=== PATIENT | male | born 1985 | race Caucasian/White ===

== ENCOUNTER 2018-09-08 14:00 | Emergency (ER) | payer OTHER ==
[~2018-09-08] VITALS: Ht 180.3 cm; Wt 72.6 kg
--- OUTSIDE RECORDS SUMMARY | 2018-09-08 14:06 | XMS REPORT ---
Author Author DELICIA RYAN Organization [facility] Address [address] [place] [address] Care Team Providers Care Engine Generator Assembler Name Role Phone DELICIA RYAN Unavailable PROBLEMS Type Condition ICD9-CM Code [id number] Code Onset Dates Condition Status SNOMED Code Problem Major depressive disorder, recurrent episode, moderate F33.1 Active [id number] ALLERGIES No Known Allergies ENCOUNTERS Encounter Location Date Diagnosis [facility] [id number] [place] [phone] Feb, Major depressive disorder, recurrent episode, moderate F33.1 [facility] [address] [place] [address] 08478[address]168 Dec, Major depressive disorder, recurrent episode, moderate F33.1 [facility] [address] [place] [address] Nov, Major depressive disorder, recurrent episode, moderate F33.1 [facility] [address] [place] [address] 25948- [address]862 Nov, Major depressive disorder, recurrent episode, moderate F33.1 IMMUNIZATIONS No Known Immunizations SOCIAL HISTORY Never Assessed REASON FOR VISIT intake Adrián PLAN OF CARE Activity Details Follow Up 6 Weeks Reason: VITAL SIGNS Height 72 in 2018-01-10 Weight 160.9 lbs 2018-01-10 Heart Rate 68 bpm 2018-01-10 Respiratory Rate 22 2018-01-10 BMI 21.82 kg/m2 2018-01-10 Blood pressure systolic 124 mmHg 2018-01-10 Blood pressure diastolic 72 mmHg 2018-01-10 MEDICATIONS Medication Instructions Dosage Frequency Start Date End Date Duration Status Celexa 20 MG Orally Once a day 0.5 tablet every day for one week then take full tablet daily 24h Dec, 30 day(s) Active RESULTS No Results PROCEDURES No Known procedures INSTRUCTIONS MEDICATIONS ADMINISTERED No Known Medications MEDICAL (GENERAL) HISTORY Type Description Date Surgical History eye surgery when he was 1986 Hospitalization History surgery 1987
--- OUTSIDE RECORDS SUMMARY | 2018-09-08 14:06 | XMS REPORT ---
Author Author AMANDA CLANCY Organization [facility] Address [address] [place] [address] Care Team Providers Care Apprentice Painter Hand Name Role Phone AMANDA CLANCY Unavailable PROBLEMS Type Condition ICD9-CM Code [id number] Code Onset Dates Condition Status SNOMED Code Problem Major depressive disorder, recurrent episode, moderate F33.1 Active [id number] ALLERGIES No Information ENCOUNTERS Encounter Location Date Diagnosis [facility] [address] [place] [phone]- [phone] Feb, Major depressive disorder, recurrent episode, moderate F33.1 [facility] [address] [address] Dec, Major depressive disorder, recurrent episode, moderate F33.1 [facility] [id number] [address] Nov, Major depressive disorder, recurrent episode, moderate F33.1 [facility] [address] [address] Nov, Major depressive disorder, recurrent episode, moderate F33.1 IMMUNIZATIONS No Known Immunizations SOCIAL HISTORY Never Assessed REASON FOR VISIT f/u, Depression. PLAN OF CARE Activity Details Follow Up Next available Reason:depression VITAL SIGNS MEDICATIONS No Known Medications RESULTS No Results PROCEDURES Procedure Date Ordered Result Body Site Psychotherapy, patient &/family, 30 minutes, established patient December 16, 2017 INSTRUCTIONS MEDICATIONS ADMINISTERED No Known Medications MEDICAL (GENERAL) HISTORY Type Description Date Surgical History eye surgery when he was 3 1986 Hospitalization History surgery 1986
--- OUTSIDE RECORDS SUMMARY | 2018-09-08 14:06 | XMS REPORT ---
Author Author DELICIA RYAN Organization [facility] Address [address] [place] [address] Care Team Providers Care Commercial Photographer Name Role Phone DELICIA RYAN Unavailable PROBLEMS Type Condition ICD9-CM Code [id number] Code Onset Dates Condition Status SNOMED Code Problem Major depressive disorder, recurrent episode, moderate F33.1 Active [id number] ALLERGIES No Known Allergies ENCOUNTERS Encounter Location Date Diagnosis [facility] [id number] [place] [address] 39193- [phone] Aug, [place] [id number] [place] [address] 99064- 5932 Apr, Major depressive disorder, recurrent episode, moderate F33.1 [facility] [id number] [place] [address] 24370- 0691 Apr, [place] [id number] [place] [address] 21871- 9551 Feb, Major depressive disorder, recurrent episode, moderate F33.1 [place] [id number] [place] [address] 50543- 68[address] Dec, Major depressive disorder, recurrent episode, moderate F33.1 [facility] [id number] [place] [address] 04458- 4592 Nov, Major depressive disorder, recurrent episode, moderate F33.1 [place] [id number] [place] [address] 07680- 2749 Nov, Major depressive disorder, recurrent episode, moderate F33.1 IMMUNIZATIONS No Known Immunizations SOCIAL HISTORY Never Assessed REASON FOR VISIT f/u JjournotRN PLAN OF CARE Activity Details Follow Up 4 Months Reason: VITAL SIGNS Height 72 in 2018-05-05 Weight 163.0 lbs 2018-05-05 Heart Rate 76 bpm 2018-05-05 Respiratory Rate 20 2018-05-05 BMI 22.10 kg/m2 2018-05-05 Blood pressure systolic 126 mmHg 2018-05-05 Blood pressure diastolic 84 mmHg 2018-05-05 MEDICATIONS Medication Instructions Dosage Frequency Start Date End Date Duration Status Celexa 20 MG Orally Once a day 1.5 tablet 24h Apr, 90 days Active RESULTS No Results PROCEDURES No Known procedures INSTRUCTIONS MEDICATIONS ADMINISTERED No Known Medications MEDICAL (GENERAL) HISTORY Type Description Date Surgical History eye surgery when he was 3 1986 Hospitalization History surgery 1986
--- OUTSIDE RECORDS SUMMARY | 2018-09-08 14:06 | XMS REPORT ---
Author Author DELICIA RYAN Organization [facility] Address [address] [place] [address] Care Team Providers Care Informatics Manager Name Role Phone DELICIA RYAN Unavailable PROBLEMS Type Condition ICD9-CM Code WHQ74-[id number] Code Onset Dates Condition Status SNOMED Code Problem Major depressive disorder, recurrent episode, moderate F33.1 Active [id number] ALLERGIES No Information ENCOUNTERS Encounter Location Date Diagnosis [place] [id number] [place] [phone] Aug, [place] [id number] [place] [address] 66412- [address]387 Apr, Major depressive disorder, recurrent episode, moderate F33.1 [facility] [id number] [place] [address] 08498- 1124 Apr, [place] [id number] [place] [address] 37727- 5535 Feb, Major depressive disorder, recurrent episode, moderate F33.1 [place] [id number] [place] [address] 28983- 5748 Dec, Major depressive disorder, recurrent episode, moderate F33.1 [facility] [id number] [place] [address] 11034- 4102 Nov, Major depressive disorder, recurrent episode, moderate F33.1 [place] [id number] [place] [address] 89512- 7970 Nov, Major depressive disorder, recurrent episode, moderate F33.1 IMMUNIZATIONS No Known Immunizations SOCIAL HISTORY Never Assessed REASON FOR VISIT refill request PLAN OF CARE VITAL SIGNS MEDICATIONS Unknown Medications RESULTS No Results PROCEDURES No Known procedures INSTRUCTIONS MEDICATIONS ADMINISTERED No Known Medications MEDICAL (GENERAL) HISTORY Type Description Date Surgical History eye surgery when he was 1986 Hospitalization History surgery 1987
--- OUTSIDE RECORDS SUMMARY | 2018-09-08 14:06 | XMS REPORT ---
Author Author AMANDA CLANCY Organization [facility] Address [address] [place] [address] Care Team Providers Care Scout Name Role Phone AMANDA CLANCY Unavailable PROBLEMS Type Condition ICD9-CM Code [id number] Code Onset Dates Condition Status SNOMED Code Problem Major depressive disorder, recurrent episode, moderate F33.1 Active [id number] ALLERGIES No Information ENCOUNTERS Encounter Location Date Diagnosis [facility] [address] [place] [address] [phone]- [address] Feb, Major depressive disorder, recurrent episode, moderate F33.1 [facility] [address] [address] Dec, Major depressive disorder, recurrent episode, moderate F33.1 [facility] [address] [address] Nov, Major depressive disorder, recurrent episode, moderate F33.1 [facility] [address] [address] Nov, Major depressive disorder, recurrent episode, moderate F33.1 IMMUNIZATIONS No Known Immunizations SOCIAL HISTORY Never Assessed REASON FOR VISIT BH intake, Depression. PLAN OF CARE Activity Details Follow Up next available Reason:depresson VITAL SIGNS MEDICATIONS No Known Medications RESULTS No Results PROCEDURES Procedure Date Ordered Result Body Site Psych diagnostic evaluation, new patient December 08, 2017 INSTRUCTIONS MEDICATIONS ADMINISTERED No Known Medications MEDICAL (GENERAL) HISTORY Type Description Date Surgical History eye surgery when he was 3 1986 Hospitalization History surgery 1986
--- OUTSIDE RECORDS SUMMARY | 2018-09-08 14:06 | XMS REPORT ---
Author Author DELICIA RYAN Organization [facility] Address [address] [place] [address] Care Team Providers Care Manager Financial Systems Name Role Phone DELICIA RYAN Unavailable PROBLEMS Type Condition ICD9-CM Code [id number] Code Onset Dates Condition Status SNOMED Code Problem Major depressive disorder, recurrent episode, moderate F33.1 Active [id number] ALLERGIES No Known Allergies ENCOUNTERS Encounter Location Date Diagnosis [facility] [id number] [place] [address] 57285- [phone] Aug, [place] [id number] [place] [address] 25444- 9724 Apr, Major depressive disorder, recurrent episode, moderate F33.1 [facility] [id number] [place] [address] 29247- 3694 Apr, [place] [id number] [place] [address] 47051- 7802 Feb, Major depressive disorder, recurrent episode, moderate F33.1 [place] [id number] [place] [address] 47838- 0599 Dec, Major depressive disorder, recurrent episode, moderate F33.1 [facility] [id number] [place] [address] 96245- 1044 Nov, Major depressive disorder, recurrent episode, moderate F33.1 [place] [id number] [place] [address] 57657- 5986 Nov, Major depressive disorder, recurrent episode, moderate F33.1 IMMUNIZATIONS No Known Immunizations SOCIAL HISTORY Never Assessed REASON FOR VISIT BH f/u PLAN OF CARE Activity Details Follow Up 4 Weeks, prn Reason: VITAL SIGNS Height 72 in 2018-02-21 Weight 158.0 lbs 2018-02-21 Heart Rate 92 bpm 2018-02-21 Respiratory Rate 20 2018-02-21 BMI 21.43 kg/m2 2018-02-21 Blood pressure systolic 130 mmHg 2018-02-21 Blood pressure diastolic 68 mmHg 2018-02-21 MEDICATIONS Medication Instructions Dosage Frequency Start Date End Date Duration Status Celexa 20 MG Orally Once a day 1.5 tablest 24h Dec, 30 days Active RESULTS No Results PROCEDURES No Known procedures INSTRUCTIONS MEDICATIONS ADMINISTERED No Known Medications MEDICAL (GENERAL) HISTORY Type Description Date Surgical History eye surgery when he was 3 1986 Hospitalization History surgery 1986
--- NOTE | 2018-09-08 14:22 | ED General ---
General Stated Complaint: DIAPHORETIC Source of Information: Patient Exam Limitations: No Limitations History of Present Illness Date Seen by Provider: Sep 08, 2018 Time Seen by Provider: 14:00 Initial Comments Here with report of overall not feeling well. States that he has not been feeling well for the last 5 days. He has had some nausea and diarrhea. Denies fevers, cough or breathing problems. Today he got up after lying down watching TV and became lightheaded, diaphoretic and pale. He sat down on the floor but did not get the feeling better and EMS was called. On their arrival he was still fairly pale and diaphoretic. IV was initiated and fluid bolus started. This did help. He was orthostatic positive per EMS with greater than 20 drop in systolic from lying to sitting. Significant other does report that the patient works quite a bit although he has been off for several days for his days off. He does work at the [employer]. Timing/Duration: 4-5 Days, Getting Worse Severity: Moderate Modifying Factors: improves with Rest Associated Systoms: No Chest Pain, No Cough; Diaphoresis, Loss of Appetite, Nausea/Vomiting; No Shortness of Air; Weakness Allergies and Home Medications Allergies Coded Allergies: No Known Drug Allergies (Unverified , 09/08/18) Patient Home Medication List Home Medication List Reviewed: Yes Review of Systems Review of Systems Constitutional: see HPI, chills, diaphoresis; No fever EENTM: no symptoms reported Respiratory: no symptoms reported Cardiovascular: see HPI; No palpitations; syncope Gastrointestinal: No abdominal pain; diarrhea, nausea; No vomiting Genitourinary: no symptoms reported Musculoskeletal: no symptoms reported Skin: no symptoms reported Psychiatric/Neurological: Denies Headache; Weakness Hematologic/Lymphatic: No Symptoms Reported All Other Systems Reviewed Negative Unless Noted: Yes Past Jduequi-Sggdrz-Ntliiq Hx Past Med/Social Hx: Reviewed Nursing Past Med/Soc Hx Patient Social History Alcohol Use: Denies Use Recreational Drug Use: No Smoking Status: Never a Smoker Past Medical History Surgeries: No Respiratory: No Cardiac: No Neurological: No Genitourinary: No Gastrointestinal: No Musculoskeletal: No HEENT: No Cancer: No Psychosocial: No Family Medical History Reviewed Nursing Family Hx Physical Exam Vital Signs Vital Signs - First Documented 09/08/18 14:00 Temp 97.9 Pulse 85 Resp 18 B/P (MAP) 111/66 (81) Pulse Ox 97 O2 Delivery Room Air Capillary Refill : Height, Weight, BMI Height: '" Weight: lbs. oz. kg; BMI Method: General Appearance: No Apparent Distress, WD/WN HEENT: PERRL/EOMI, Pharynx Normal Neck: Non Tender, Supple Respiratory: Lungs Clear, Normal Breath Sounds Cardiovascular: Regular Rate, Rhythm, No Murmur Gastrointestinal: Non Tender, Soft Back: Normal Inspection, No CVA Tenderness, No Vertebral Tenderness Extremity: Normal Range of Motion, Non Tender Neurologic/Psychiatric: Alert, Oriented x3 Skin: Normal Color, Warm/Dry Progress/Results/Core Measures Suspected Sepsis SIRS Temperature: Pulse: Respiratory Rate: Laboratory Tests 09/08/18 14:25: White Blood Count 8.7 Blood Pressure / Mean: Laboratory Tests 09/08/18 14:25: Creatinine 0.83, Platelet Count 269, Total Bilirubin 0.4 Results/Orders Lab Results Laboratory Tests Test 09/08/18 14:25 09/08/18 14:49 Range/Units White Blood Count 8.7 4.3-11.0 10^3/uL Red Blood Count 5.01 4.35-5.85 10^6/uL Hemoglobin 15.1 13.3-17.7 G/DL Hematocrit 44 40-54 % Mean Corpuscular Volume 87 80-99 FL Mean Corpuscular Hemoglobin 30 25-34 PG Mean Corpuscular Hemoglobin Concent 35 32-36 G/DL Red Cell Distribution Width 13.0 10.0-14.5 % Platelet Count 269 130-400 10^3/uL Mean Platelet Volume 9.5 7.4-10.4 FL Neutrophils (%) (Auto) 56 42-75 % Lymphocytes (%) (Auto) 32 12-44 % Monocytes (%) (Auto) 7 0-12 % Eosinophils (%) (Auto) 5 0-10 % Basophils (%) (Auto) 1 0-10 % Neutrophils # (Auto) 4.8 1.8-7.8 X 10^3 Lymphocytes # (Auto) 2.7 1.0-4.0 X 10^3 Monocytes # (Auto) 0.6 0.0-1.0 X 10^3 Eosinophils # (Auto) 0.4 H 0.0-0.3 10^3/uL Basophils # (Auto) 0.0 0.0-0.1 10^3/uL Sodium Level 138 135-145 MMOL/L Potassium Level 3.7 3.6-5.0 MMOL/L Chloride Level 105 98-107 MMOL/L Carbon Dioxide Level 23 21-32 MMOL/L Anion Gap 10 5-14 MMOL/L Blood Urea Nitrogen 12 7-18 MG/DL Creatinine 0.83 0.60-1.30 MG/DL Estimat Glomerular Filtration Rate > 60 BUN/Creatinine Ratio 14 Glucose Level 114 H 70-105 MG/DL Calcium Level 8.8 8.5-10.1 MG/DL Corrected Calcium 8.5 8.5-10.1 MG/DL Magnesium Level 2.1 1.8-2.4 MG/DL Total Bilirubin 0.4 0.1-1.0 MG/DL Aspartate Amino Transf (AST/SGOT) 18 5-34 U/L Alanine Aminotransferase (ALT/SGPT) 20 0-55 U/L Alkaline Phosphatase 76 40-136 U/L C-Reactive Protein High Sensitivity 0.05 0.00-0.50 MG/DL Total Protein 7.0 6.4-8.2 GM/DL Albumin 4.4 3.2-4.5 GM/DL Urine Color YELLOW Urine Clarity CLEAR Urine pH 8 5-9 Urine Specific [place] 1.015 L 1.016-1.022 Urine Protein 1+ H NEGATIVE Urine Glucose (UA) NEGATIVE NEGATIVE Urine Ketones NEGATIVE NEGATIVE Urine Nitrite NEGATIVE NEGATIVE Urine Bilirubin NEGATIVE NEGATIVE Urine Urobilinogen NORMAL NORMAL MG/DL Urine Leukocyte Esterase 1+ H NEGATIVE Urine RBC (Auto) NEGATIVE NEGATIVE Urine RBC NONE /HPF Urine WBC 2-5 /HPF Urine Squamous Epithelial Cells NONE /HPF Urine Crystals NONE /LPF Urine Bacteria NEGATIVE /HPF Urine Casts NONE /LPF Urine Mucus NEGATIVE /LPF Urine Culture Indicated NO My Orders Orders - LESLIE LIMA MD Cbc With Automated Diff (09/08/18 14:09) Comprehensive Metabolic Panel (09/08/18 14:09) Hs C Reactive Protein (09/08/18 14:09) Magnesium (09/08/18 14:09) Ua Culture If Indicated (09/08/18 14:09) Vital Signs/I&O 09/08/18 14:00 Temp 97.9 Pulse 85 Resp 18 B/P (MAP) 111/66 (81) Pulse Ox 97 O2 Delivery Room Air Capillary Refill : Progress Note : Progress Note Seen and evaluated. IV established by EMS. Normal saline 1 L bolus running now. We will consider another needed. Labs and UA ordered. Monitor patient. 1545: Overall feeling much better. Tolerating by mouth fluids without difficulty. Discharged home with return precautions. Patient verbalize understanding instructions and agreement with plan. Departure Impression Primary Impression: Near syncope Additional Impressions: Nausea Acute diarrhea Disposition: HOME, SELF-CARE Condition: Improved Departure-Patient Inst. Decision time for Depature: 15:51 Patient Instructions: Acute Abdomen (Belly Pain), Adult (DC), Nausea and Vomiting, Adult (DC), Syncope (Fainting) (DC) Add. Discharge Instructions: Clear liquid or light diet for 24 hours and then advance as tolerated. Drink plenty of fluids. Follow up with your Dr. in a few days for recheck. Return for worse pain, fever, vomiting, weakness, breathing problems or other concerns as needed. Work/School Note: [employer] LESLIE LIMA MD Sep 08, 2018 14:22
[2018-09-08 14:34] LABS: BASOPHILS % (AUTO) 1 % (0-10); EOSINOPHILS # (AUTO) 0.4 10^3/uL (0.0-0.3); EOSINOPHILS % (AUTO) 5 % (0-10); HEMATOCRIT 44 % (40-54); HEMOGLOBIN 15.1 G/DL (13.3-17.7); LYMPHOCYTES # (AUTO) 2.7 X 10^3 (1.0-4.0); LYMPHOCYTES % (AUTO) 32 % (12-44); MEAN CORPUSCULAR HEMOGLOBIN 30 PG (25-34); MEAN CORPUSCULAR HGB CONC 35 G/DL (32-36); MEAN CORPUSCULAR VOLUME 87 FL (80-99); MEAN PLATELET VOLUME 9.5 FL (7.4-10.4); MONOCYTES # (AUTO) 0.6 X 10^3 (0.0-1.0); MONOCYTES % (AUTO) 7 % (0-12); NEUTROPHILS # (AUTO) 4.8 X 10^3 (1.8-7.8); NEUTROPHILS % (AUTO) 56 % (42-75); PLATELET COUNT 269 10^3/uL (130-400); RED BLOOD COUNT 5.01 10^6/uL (4.35-5.85); WHITE BLOOD COUNT 8.7 10^3/uL (4.3-11.0)
[2018-09-08 14:53] LABS: ALANINE AMINOTRANSFERASE 20 U/L (0-55); ALBUMIN 4.4 GM/DL (3.2-4.5); ALKALINE PHOSPHATASE 76 U/L (40-136); BILIRUBIN,TOTAL 0.4 MG/DL (0.1-1.0); BUN/CREATININE RATIO 14; CALCIUM 8.8 MG/DL (8.5-10.1); CARBON DIOXIDE 23 MMOL/L (21-32); CHLORIDE 105 MMOL/L (98-107); CREATININE SERUM 0.83 MG/DL (0.60-1.30); GFR ESTIMATED > 60; GLUCOSE 114 MG/DL (70-105); MAGNESIUM 2.1 MG/DL (1.8-2.4); POTASSIUM 3.7 MMOL/L (3.6-5.0); SODIUM 138 MMOL/L (135-145)
[2018-09-08 14:56] LABS: BILIRUBIN,URINE NEGATIVE (NEGATIVE); CLARITY,URINE CLEAR; COLOR,URINE YELLOW; GLUCOSE, URINE (UA) NEGATIVE (NEGATIVE); KETONES,URINE NEGATIVE (NEGATIVE); LEUKOCYTE ESTERASE ,URINE 1+ (NEGATIVE); NITRITE,URINE NEGATIVE (NEGATIVE); PH,URINE 8 (5-9); PROTEIN,URINE 1+ (NEGATIVE); UROBILINOGEN,URINE NORMAL (NORMAL)
[2018-09-08 15:04] LABS: BACTERIA,URINE NEGATIVE /HPF
[2018-09-08 15:58] VITALS: BP 119/65
== END 2018-09-08 15:58 | disposition home or self-care (01) ==
LOC: ER 14:01
DX: R11.0 Nausea (principal); R55 Syncope and collapse; R19.7 Diarrhea, unspecified
CPT/HCPCS: 36415; 80053; 81000; 83735; 85025; 86141; 99283

== ENCOUNTER → 2020-02-29 | Outpatient (CLI) | payer BC ==
[2020-02-29 17:39] LABS: HEMOGLOBIN 16.2 G/DL (13.3-17.7); MEAN PLATELET VOLUME 9.3 FL (7.4-10.4); RED CELL DISTRIBUTION WIDTH 13.6 % (10.0-14.5); WHITE BLOOD COUNT 7.3 10^3/uL (4.3-11.0)
[2020-02-29 18:11] LABS: ALBUMIN 4.5 GM/DL (3.2-4.5); CHLORIDE 107 MMOL/L (98-107); POTASSIUM 4.3 MMOL/L (3.6-5.0); SODIUM 140 MMOL/L (135-145)
[2020-02-29 18:12] LABS: CALCIUM 9.2 MG/DL (8.5-10.1)
[2020-02-29 18:13] LABS: GLUCOSE 98 MG/DL (70-105); TOTAL PROTEIN 7.7 GM/DL (6.4-8.2)
[2020-02-29 18:14] LABS: CARBON DIOXIDE 23 MMOL/L (21-32)
[2020-02-29 18:15] LABS: BILIRUBIN,TOTAL 0.4 MG/DL (0.1-1.0)
[2020-02-29 18:17] LABS: ALKALINE PHOSPHATASE 90 U/L (40-136); CREATININE SERUM 0.84 MG/DL (0.60-1.30); GFR ESTIMATED > 60
[2020-02-29 18:18] LABS: BUN/CREATININE RATIO 13
[2020-02-29 18:20] LABS: ALANINE AMINOTRANSFERASE 70 U/L (0-55)
== END ==
LOC: LAB 17:17
PROVIDERS: ATTEND Nurse Practitioner Family
DX: R00.2 Palpitations (principal)
CPT/HCPCS: 36415; 80053; 82553; 83874; 84484; 85027

== ENCOUNTER 2022-09-11 15:42 | Emergency (ER) | payer BC ==
[~2022-09-11] VITALS: Ht 182.9 cm; Wt 74.8 kg
[2022-09-11 15:49] VITALS: BP 128/80
[2022-09-11 16:04] LABS: BILIRUBIN,URINE NEGATIVE (NEGATIVE); CLARITY,URINE SL CLOUDY; COLOR,URINE YELLOW; GLUCOSE, URINE (UA) NEGATIVE (NEGATIVE); KETONES,URINE NEGATIVE (NEGATIVE); LEUKOCYTE ESTERASE ,URINE NEGATIVE (NEGATIVE); NITRITE,URINE NEGATIVE (NEGATIVE); PROTEIN,URINE NEGATIVE (NEGATIVE)
[2022-09-11] MEDS ORDERED: fentaNYL INJ 100 MCG/2 ML AMP IVP STA (16:10)
--- NOTE | 2022-09-11 16:10 | ED GI ---
General Chief Complaint: Abdominal/GI Problems Stated Complaint: RT SIDE ABD/RIB PAIN Nursing Triage Note: PT AMBULATE TO TRIAGE WITHOUT DIFFICULTY WITH C/O RIGHT SIDE ABD PAIN X2 DAYS. PT DENIES N/V/D. PAIN IS WORSE WITH MOVEMENT, COUGHING, AND DURING BM. History of Present Illness Date Seen by Provider: Sep 11, 2022 Time Seen by Provider: 15:46 Initial Comments 37-year-old previously healthy male presents with complaints of sharp stabbing right upper quadrant abdominal pain for the last 2 days. Reports pain is worse with movement, sneezing, coughing, laughing. Denies pain associated with eating. Reports some pain radiation to his back. Denies nausea, vomiting, diarrhea, constipation. Last bowel movement was a couple of hours ago and was normal. Reports urine is dark in color, denies dysuria. Patient denies any past medical history or surgical history. Patient denies taking any daily medications. Timing/Duration: 1-2 Days Severity/Quality: Moderate Location: RUQ Radiation: Back Activities at Onset: None Modifying Factors: Worsens With Movement Associated Symptoms: No Fever/Chills, No Nausea/Vomiting Allergies and Home Medications Allergies Coded Allergies: No Known Drug Allergies (Unverified , 09/08/18) Patient Home Medication List Home Medication List Reviewed: Yes Review of Systems Review of Systems Constitutional: no symptoms reported Respiratory: No Symptoms Reported Cardiovascular: No Symptoms Reported Gastrointestinal: Abdominal Pain; Denies Constipated, Denies Diarrhea, Denies Nausea, Denies Vomiting Genitourinary: No Symptoms Reported Musculoskeletal: no symptoms reported Past Cnxojjq-Hcdesu-Lixgmt Hx Patient Social History Tobacco Use?: No Smoking Status: Former Smoker Use of E-Cig and/or Vaping dev: Yes E-Cig or Vaping type used: Nicotine Use of E-Cig and/or Vaping Saul: Current Everyday User Substance use?: No Alcohol Use?: Yes Alcohol Frequency: Rarely Pt feels they are or have been: No Immunizations Up To Date COVID19 Vaccine Director Of Acquisitions: MODERNA Seasonal Allergies Seasonal Allergies: No Past Medical History Surgeries: No Respiratory: No Cardiac: No Neurological: No Genitourinary: No Gastrointestinal: No Musculoskeletal: No Endocrine: No HEENT: No Cancer: No Psychosocial: No Integumentary: No Blood Disorders: No Physical Exam Vital Signs Vital Signs - First Documented 09/11/22 15:49 Temp 36.8 Pulse 89 Resp 19 B/P (MAP) 128/80 (96) O2 Delivery Room Air Capillary Refill : Less Than 3 Seconds Height/Weight/BMI Height: 5'11.00" Weight: 160lbs. oz. 72.247059ab; 22.00 BMI Method:Stated General Appearance: WD/WN, mild distress Neck: full range of motion, supple, normal inspection Respiratory: lungs clear, normal breath sounds, no respiratory distress, no accessory muscle use Cardiovascular: regular rate, rhythm, no edema, no gallop, no JVD, no murmur Gastrointestinal: normal bowel sounds, soft, guarding (RUQ), tenderness (moderate tenderness RUQ) Extremities: normal range of motion, normal inspection Neurologic/Psychiatric: alert, normal mood/affect, oriented x 3 Skin: normal color, warm/dry Progress/Results/Core Measures Results/Orders Lab Results Laboratory Tests Test 09/11/22 15:58 09/11/22 16:06 Range/Units Urine Color YELLOW Urine Clarity SL CLOUDY Urine pH 6.0 5-9 Urine Specific [place] 1.025 H 1.016-1.022 Urine Protein NEGATIVE NEGATIVE Urine Glucose (UA) NEGATIVE NEGATIVE Urine Ketones NEGATIVE NEGATIVE Urine Nitrite NEGATIVE NEGATIVE Urine Bilirubin NEGATIVE NEGATIVE Urine Urobilinogen 0.2 < = 1.0 MG/DL Urine Leukocyte Esterase NEGATIVE NEGATIVE Urine RBC (Auto) NEGATIVE NEGATIVE Urine RBC NONE /HPF Urine WBC 0-2 /HPF Urine Crystals NONE /LPF Urine Bacteria TRACE /HPF Urine Casts NONE /LPF Urine Mucus NEGATIVE /LPF Urine Other RARE SPERM /HPF Urine Culture Indicated NO White Blood Count 14.8 H 4.3-11.0 10^3/uL Red Blood Count 5.09 4.30-5.52 10^6/uL Hemoglobin 15.3 13.3-17.7 g/dL Hematocrit 44 40-54 % Mean Corpuscular Volume 87 80-99 fL Mean Corpuscular Hemoglobin 30 25-34 pg Mean Corpuscular Hemoglobin Concent 35 32-36 g/dL Red Cell Distribution Width 12.7 10.0-14.5 % Platelet Count 306 130-400 10^3/uL Mean Platelet Volume 9.1 9.0-12.2 fL Immature Granulocyte % (Auto) 0 % Neutrophils (%) (Auto) 80 H 42-75 % Lymphocytes (%) (Auto) 14 12-44 % Monocytes (%) (Auto) 5 0-12 % Eosinophils (%) (Auto) 1 0-10 % Basophils (%) (Auto) 0 0-10 % Neutrophils # (Auto) 11.7 H 1.8-7.8 10^3/uL Lymphocytes # (Auto) 2.1 1.0-4.0 10^3/uL Monocytes # (Auto) 0.8 0.0-1.0 10^3/uL Eosinophils # (Auto) 0.1 0.0-0.3 10^3/uL Basophils # (Auto) 0.1 0.0-0.1 10^3/uL Immature Granulocyte # (Auto) 0.1 0.0-0.1 10^3/uL Neutrophils % (Manual) 69 % Lymphocytes % (Manual) 12 % Monocytes % (Manual) 10 % Eosinophils % (Manual) 3 % Basophils % (Manual) 1 % Reactive Lymphocytes 5 % Blood Morphology Comment NORMAL Sodium Level 140 135-145 MMOL/L Potassium Level 3.9 3.6-5.0 MMOL/L Chloride Level 104 98-107 MMOL/L Carbon Dioxide Level 26 21-32 MMOL/L Anion Gap 10 5-14 MMOL/L Blood Urea Nitrogen 10 7-18 MG/DL Creatinine 0.93 0.60-1.30 MG/DL Estimat Glomerular Filtration Rate 109 BUN/Creatinine Ratio 11 Glucose Level 87 70-105 MG/DL Calcium Level 9.3 8.5-10.1 MG/DL Corrected Calcium 8.5-10.1 MG/DL Total Bilirubin 0.5 0.1-1.0 MG/DL Aspartate Amino Transf (AST/SGOT) 21 5-34 U/L Alanine Aminotransferase (ALT/SGPT) 32 0-55 U/L Alkaline Phosphatase 74 40-136 U/L Total Protein 7.6 6.4-8.2 GM/DL Albumin 4.7 H 3.2-4.5 GM/DL Amylase Level 60 25-125 U/L Lipase 25 8-78 U/L My Orders Orders - BLAYNE VAZQUEZ APRN Ua Culture If Indicated (09/11/22 15:45) Comprehensive Metabolic Panel (09/11/22 16:03) Lipase (09/11/22 16:03) Amylase (09/11/22 16:03) Ed Iv/Invasive Line Start (09/11/22 16:03) Cbc With Automated Diff (09/11/22 16:03) Us Gallbladder 09404 (09/11/22 16:03) Fentanyl Inj (Sublimaze Injection) (09/11/22 16:10) Manual Differential (09/11/22 16:06) Ct Abdomen/Pelvis W (09/11/22 16:31) Iohexol Injection (Omnipaque 350 Mg/Ml 1 (09/11/22 17:00) Received Contrast (Hold Metformin- Contr (09/11/22 17:00) Ns (Ivpb) (Sodium Chloride 0.9% Ivpb Bag (09/11/22 17:00) Medications Given in ED Current Medications Medications Dose Ordered Sig/Nancy Route Start Time Stop Time Status Last Admin Dose Admin Iohexol 100 ml ONCE ONCE IV 09/11/22 17:00 09/11/22 17:01 DC 09/11/22 17:27 80 ML Sodium Chloride 100 ml ONCE ONCE IV 09/11/22 17:00 09/11/22 17:01 DC 09/11/22 17:27 80 ML Vital Signs/I&O 09/11/22 15:49 Temp 36.8 Pulse 89 Resp 19 B/P (MAP) 128/80 (96) O2 Delivery Room Air Blood Pressure Mean: 96 Progress Progress Note #1: Time: 16:13 Progress Note Patient evaluated. Urinalysis, CMP, CBC, lipase, amylase, and ultrasound o rdered. Concerned for cholecystitis and/or cholelithiasis. Also considering kidney stones, gastritis, or pancreatitis. Progress Note #2: Time: 16:32 Progress Note Ultrasound completed. 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 White blood cell count was elevated. CT abdomen pelvis ordered. Progress Note #3: Time: 17:36 Progress Note Discussed test results with patient. Informed patient that pain could be caused from constipation and gas buildup. Discussed patient picking up lqjf-[id number]-lbdsz er omeprazole as well as ywjx-ikg-kwjpfua MiraLAX. Discussed a clear liquid diet with patient for the next couple of days. Departure Impression Primary Impression: Constipation Disposition: 01 HOME, SELF-CARE Condition: Stable Departure-Patient Inst. Decision time for Depature: 17:38 Referrals: NO,LOCAL PHYSICIAN (PCP/Family) Primary Care Physician Patient Instructions: Constipation, Adult (DC), Peptic Ulcers (DC) Add. 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 Take as instructed. cheese production supervisor [id number] MiraLAX. Take a capful 2 times a day. Reduce usage to once a day after bowels start moving. Stop usage if diarrhea occurs. Consume a full liquid diet for the next 2 days to give your bowels a rest. Follow-up with primary care provider. All discharge instructions reviewed with patient and/or family. Voiced understanding. BLAYNE VAZQUEZ APRN Sep 11, 2022 16:10
[2022-09-11 16:18] LABS: BASOPHILS # (AUTO) 0.1 10^3/uL (0.0-0.1); BASOPHILS % (AUTO) 0 % (0-10); EOSINOPHILS # (AUTO) 0.1 10^3/uL (0.0-0.3); EOSINOPHILS % (AUTO) 1 % (0-10); HEMATOCRIT 44 % (40-54); HEMOGLOBIN 15.3 g/dL (13.3-17.7); LYMPHOCYTES # (AUTO) 2.1 10^3/uL (1.0-4.0); LYMPHOCYTES % (AUTO) 14 % (12-44); MEAN CORPUSCULAR HEMOGLOBIN 30 pg (25-34); MEAN CORPUSCULAR HGB CONC 35 g/dL (32-36); MEAN CORPUSCULAR VOLUME 87 fL (80-99); MEAN PLATELET VOLUME 9.1 fL (9.0-12.2); MONOCYTES # (AUTO) 0.8 10^3/uL (0.0-1.0); MONOCYTES % (AUTO) 5 % (0-12); NEUTROPHILS # (AUTO) 11.7 10^3/uL (1.8-7.8); NEUTROPHILS % (AUTO) 80 % (42-75); PLATELET COUNT 306 10^3/uL (130-400); WHITE BLOOD COUNT 14.8 10^3/uL (4.3-11.0)
[2022-09-11 16:24] LABS: BACTERIA,URINE TRACE /HPF; URINE OTHER RARE SPERM /HPF; WBC,URINE 0-2 /HPF
--- NOTE | 2022-09-11 16:42 | Diagnostic Imaging Report ---
PROCEDURE: US Gallbladder. TECHNIQUE: Multiple real-time grayscale images were obtained over the right upper quadrant in various projections. INDICATION: Abdominal pain. FINDINGS: Grayscale imaging of the gallbladder reveals no intraluminal filling defect. There is no gallbladder wall thickening or pericholecystic fluid. No intra or extrahepatic biliary ductal dilatation is identified. No pancreatic, right renal, abdominal aortic or inferior vena caval abnormality is documented. No ascites was noted. IMPRESSION: Unremarkable right upper quadrant abdominal ultrasound. Dictated by: Dictated on workstation # [id number]
[2022-09-11 16:52] LABS: ALBUMIN 4.7 GM/DL (3.2-4.5); CHLORIDE 104 MMOL/L (98-107); POTASSIUM 3.9 MMOL/L (3.6-5.0); SODIUM 140 MMOL/L (135-145)
[2022-09-11 16:53] LABS: AMYLASE 60 U/L (25-125); CALCIUM 9.3 MG/DL (8.5-10.1)
[2022-09-11 16:54] LABS: BASOPHILS % (MANUAL) 1 %; EOSINOPHILS % (MANUAL) 3 %; GLUCOSE 87 MG/DL (70-105); LYMPHOCYTES % (MANUAL) 12 %; MONOCYTES % (MANUAL) 10 %; NEUTROPHILS % (MANUAL) 69 %; RBC MORPH NORMAL; REACTIVE LYMPHOCYTES 5 %
[2022-09-11 16:55] LABS: TOTAL PROTEIN 7.6 GM/DL (6.4-8.2)
[2022-09-11 16:56] LABS: BILIRUBIN,TOTAL 0.5 MG/DL (0.1-1.0); CARBON DIOXIDE 26 MMOL/L (21-32)
[2022-09-11 16:58] LABS: ALKALINE PHOSPHATASE 74 U/L (40-136); CREATININE SERUM 0.93 MG/DL (0.60-1.30); GFR ESTIMATED 109
[2022-09-11 16:59] LABS: BUN/CREATININE RATIO 11
[2022-09-11] MEDS ORDERED: NS 100 ML (IVPB) BAG IV ONE (17:00)
[2022-09-11] MEDS ORDERED: HOLD METFORMIN - RECEIVED CONTRAST 20 ML VIAL IV SCH (17:00)
[2022-09-11] MEDS ORDERED: IOHEXOL 350 MG/ML 100 ML (OMNIPAQUE 350) VIAL IV ONE (17:00)
[2022-09-11 17:01] LABS: ALANINE AMINOTRANSFERASE 32 U/L (0-55)
[2022-09-11 17:02] LABS: LIPASE 25 U/L (8-78)
--- NOTE | 2022-09-11 17:19 | Diagnostic Imaging Report ---
PROCEDURE: CT abdomen and pelvis with contrast. TECHNIQUE: Multiple contiguous axial images were obtained through the abdomen and pelvis after administration of intravenous contrast. Auto Exposure Controls were utilized during the CT exam to meet ALARA standards for radiation dose reduction. All CT scans use one or more of the following dose optimizing techniques: automated exposure control, MA and/or KvP adjustment based on patient size and exam type or iterative reconstruction. INDICATION: Abdominal pain. FINDINGS: No focal hepatic, gallbladder, pancreatic, adrenal gland or splenic abnormality is identified. Kidneys are unremarkable in appearance. There is no evidence of bowel obstruction and the appendix is unremarkable. Unopacified bladder is unremarkable. There is suggested mural thickening at the rectum. No organized fluid collection is seen to indicate abscess. There is some hemangioma in the L3 vertebral body. IMPRESSION: Possible proctitis without other CT evidence of acute abnormality in the abdomen or pelvis. Dictated by: Dictated on workstation # [id number]
== END 2022-09-11 17:50 | disposition home or self-care (01) ==
LOC: EDUNIT# 15:42 → ER 15:44
DX: K59.00 Constipation, unspecified (principal); D72.829 Elevated white blood cell count, unspecified; Z87.891 Personal history of nicotine dependence
CPT/HCPCS: 36415; 74177; 76705; 80053; 81000; 82150; 83690; 85007; 85027